=== PATIENT | female | born 1930 | race Caucasian/White ===

== ENCOUNTER 2019-04-26 20:56 | Observation (INO) ==
[2019-04-26 21:20] LABS: Basophils % 0.5 % (0.1-2.0); Eosinophils # 0.4 K/mm3 (0.0-0.4); Eosinophils % 6.5 % (0.1-12.0); Hematocrit 36.4 % (37.0-47.0); Hemoglobin 11.6 g/dL (12.2-16.2); Lymphocytes # 1.7 K/mm3 (0.7-4.5); Lymphocytes % 28.1 % (10-50); Mean Corpuscular HGB Conc 31.9 g/dL (31.8-35.4); Mean Corpuscular Volume 92.9 fl (81-99); Mean Platelet Volume 7.5 fl (7.4-10.4); Monocytes # 0.5 K/mm3 (0.1-1.0); Monocytes % 8.8 % (1.7-9.3); Neutrophils # 3.4 K/mm3 (1.8-7.8); Neutrophils % 56.1 % (37.0-80.0); Platelet Count 277 K/mm3 (142-424); Red Blood Count 3.91 M/mm3 (4.20-5.40); Red Cell Distribution Width 13.2 % (11.5-17.5)
[2019-04-26 21:27] LABS: Activated Partial Thrombo Time 29.8 seconds (23.6-34.0); INR 0.97 (0.9-1.1); Prothrombin Time 10.1 seconds (9.4-11.8)
[2019-04-26 21:33] LABS: Anion Gap 12.9 mEq/L (5-15); Calcium 9.1 mg/dL (8.5-10.1)
[2019-04-26 21:51] LABS: Microscopic, Urine URINE MICROSCOPIC (MICROSCOPIC)
[2019-04-26 21:52] LABS: Albumin Level 3.1 gm/dL (3.4-5.0); Bilirubin,Total 0.2 mg/dL (0.2-1.0); Total Protein,Serum 7.3 gm/dL (6.4-8.2)
[2019-04-26 21:54] LABS: Appearance,Urine CLEAR (Clear); Bilirubin,Urine Negative (Negative); Blood, Urine Negative (Negative); Color,Urine YELLOW (Yellow); Glucose,Urine (UA) Negative (Negative); Ketones,Urine Negative (Negative); Leukocyte Esterase,Urine 1+ (Negative); Protein,Urine Negative (Negative); Urobilinogen,Urine 0.2 EU/dl (0.2)
[2019-04-26 21:54] LABS: Bilirubin,Indirect 0.2 mg/dL (0.0-0.9)
--- NOTE | 2019-04-26 22:12 | Emergency Department Note ---
ED Disposition Clinical Impression: Elevated troponin, RBBB, Renal insufficiency, Elevated erythrocyte sedimentation rate Transient cerebral ischemia Qualifiers: Transient cerebral ischemia type: unspecified Qualified Code(s): G45.9 - Transient cerebral ischemic attack, unspecified Disposition: Admitted as Observation Condition on Discharge: Fair Referrals: Del Tavares MD [Primary Care Provider] - - Critical Care Critical Care Time: Yes Attestation: On 04/26/19, the high probability of a clinically significant, sudden or life threatening deterioration of the following system(s) required my full and direct attention, intervention and personal management. The time I documented below is in addition to time spent performing reported procedures but includes the following listed in this critical care notation. Total Critical Care Time: 60 Vital system(s) involved:: Central Nervous System My critical care processes included: Assessment & monitoring of V/S, Data Review/Interpretation, Coordinating Care, Medication Orders and management, Documentation Medical Decision Making - Medical Records Medical records reviewed: Yes: I reviewed the patient's medical records. - Brock Inquiry Pt receiving controlled substance: No Vital Signs: 04/26/19 21:03 04/26/19 21:21 Temperature 98.4 F Temperature Source Oral Pulse Rate [Right] 85 85 Respiratory Rate 18 18 Blood Pressure [Right Arm] 148/77 H 148/77 H Blood Pressure Mean [Right Arm] 100 100 02 Sat by Pulse Oximetry 95 94 L Oxygen Delivery Method Room Air Room Air - Lab Data Lab results reviewed: Yes: I reviewed the patient's lab results. Lab Results 04/26/19 19:05: WBC 6.0, RBC 3.91 L, Hgb 11.6 L, Hct 36.4 L, MCV 92.9, MCH 29.6, MCHC 31.9, RDW 13.2, Plt Count 277, MPV 7.5, Neut % (Auto) 56.1, Lymph % (Auto) 28.1, Gila % (Auto) 8.8, Eos % (Auto) 6.5, Baso % (Auto) 0.5, Neut # (Auto) 3.4, Lymph # (Auto) 1.7, Gila # (Auto) 0.5, Eos # (Auto) 0.4, Baso # (Auto) 0.0 04/26/19 19:05: Sodium 138, Potassium 4.9, Chloride 106, Carbon Dioxide 24, Anion Gap 12.9, BUN 42 H, Creatinine 1.79 H, Estimated Creat Clear 20, Estimated GFR 27 L, Est GFR ( Amer) 32 L, Glucose 102, Calcium 9.1, Troponin I 0.15 H 04/26/19 19:05: PT 10.1, INR 0.97, APTT 29.8 04/26/19 19:05: C-Reactive Protein 1.5 H 04/26/19 19:05: Total Bilirubin 0.2, Direct Bilirubin 0.0, Indirect Bilirubin 0.2, AST 12 L, ALT 13, Alkaline Phosphatase 94, Total Protein 7.3, Albumin 3.1 L 04/26/19 21:48: Urine Color Yellow, Urine Appearance Clear, Urine pH 6.0, Ur Specific [place] 1.020, Urine Protein Negative, Urine Glucose (UA) Negative, Urine Ketones Negative, Urine Blood Negative, Urine Nitrate Negative, Urine Bilirubin Negative, Urine Urobilinogen 0.2, Ur Leukocyte Esterase 1+ A, Urine WBC 5-10, Ur Squamous Epith Cells 10-20, Ur Renal Epithelial Cell 10-20 Result diagrams: 04/26/19 19:05 04/26/19 19:05 Orders (Tests/Meds): ORDERS Category Date Time Status CT head/brain wo con Stat Cat Scan 04/26/19 21:00 Taken Chest XR -- portable [XR chest portable] Stat Exams 04/26/19 21:01 Taken Erythrocyte Sedimentation Rate Stat Lab 04/26/19 19:05 Received Lactic Acid Stat Lab 04/26/19 21:37 Received Blood Culture Stat Micro 04/26/19 21:37 Received Urine Culture Stat Micro 04/26/19 21:48 Received 12-lead EKG Request [ECG Request by /Davina] Stat Y 04/26/19 21:11 Ordered - Radiology Data #1 Image(s): Chest Image Reviewed: Yes I reviewed the patient's radiology image Preliminary Findings: Normal/NAD - CT Data CT Scan: Head Time Received: 22:[address] Reviewed: Yes: I have viewed the radiologist's interpretation Preliminary Findings: Normal/NAD - ECG Data Tracing #1 Normal Sinus Rhythm: Yes Ischemic changes: non-specific ST-T wave changes Conduction abnormalities present: RBBB, 1st degree AV block ECG compared to prior tracings: there are no significant changes - Physician Consults Physician Consulted: mary omalley stroke team Reason -: Pt condition Neuro HPI - General Chief Complaint: Neuro Symptoms/Deficit Stated Complaint: Possible stroke Time Seen by Provider: 04/26/19 21:10 Mode of Arrival: EMS Source of Information: Patient, Relative, EMS, Medical Record Limitations: Physical Limitations Description of Symptoms (Recalled from ER Triage Doc. by RN): Pt family states they were visiting pt around 1900 this evening and pt reported she was very weak. Family did not noticed any deficits at this time. [facility] to [facility] from jail pt began to left sided drooping in her face around 1930 and called EMS. Per RN at jail she gave pt 81mg asa. - History of Present Illness HPI Narrative: sudden nonresponsive and responded to tactile stimuli and had brief period of aphasia - pt with nausea en route - no fever or trauma and no def visual loss bu t confusing story of rt lid ptosis - she is at baseline now except partial rt lid ptosis Onset (ago): hour(s) Date last observed normal: 04/26/19 Time last observed normal: 19:00 Timing confirmed by: family member Location: speech History of same: No Severity: moderate On Anticoagulants: No Associated symptoms: denies other symptoms Treatments Prior to Arrival: none - Related Data Home Medications: Home Medications Medication Instructions Recorded Confirmed Acetaminophen [Tylenol 500mg 500 mg PO NEEDED PRN 04/26/19 04/26/19 tablet] Amlodipine Besylate [Amlodipine 10 mg PO DAILY 04/26/19 04/26/19 10mg Tab] Benzonatate [Benzonatate 100mg 100 mg PO NEEDED PRN 04/26/19 04/26/19 cap] Ferrous Sulfate [Ferrous Sulfate 325 mg PO DAILY 04/26/19 04/26/19 325mg Tablet] Fluticasone Propionate [Flonase 2 spr NS DAILY 04/26/19 04/26/19 50mcg nasal spray 16gm] Gabapentin [Gabapentin 300mg Cap] 300 mg PO BID 04/26/19 04/26/19 Ibuprofen [Ibuprofen 200MG Capsule] 200 mg PO NEEDED PRN 04/26/19 04/26/19 L.acidoph,Paracasei, B.lactis 1 each PO DAILY 04/26/19 04/26/19 [Probiotic] Lactulose [Lactulose 10gm/15ml 10 gm PO NEEDED PRN 04/26/19 04/26/19 Oral Soln] Lisinopril [Lisinopril 5mg 5 mg PO DAILY 04/26/19 04/26/19 Tablet] Loratadine [Claritin] 10 mg PO DAILY 04/26/19 04/26/19 Melatonin 10 mg PO HS 04/26/19 04/26/19 Omeprazole [Omeprazole 40mg 40 mg PO DAILY 04/26/19 04/26/19 Capsule] Sennosides [Senna] 8.6 mg PO NEEDED PRN 04/26/19 04/26/19 Sertraline HCl 25 mg PO DAILY 04/26/19 04/26/19 Tolterodine Tartrate [Tolterodine 4 mg PO DAILY 04/26/19 04/26/19 Tartrate ER] levETIRAcetam [Keppra 500mg tablet] 500 mg PO BID 04/26/19 04/26/19 Allergies/Adverse Reactions: Allergies Allergy/AdvReac Type Severity Reaction Status Date / Time No Known Drug Intolerances Allergy Unknown NA Unverified 09/11/17 15:07 Stroke Alert/NIH Score - LOC Stroke Alert: Yes Stroke Alert date: 04/26/19 Stroke Alert time of activation: 21:00 Location of Alert: Emergency Department Level of Consciousness: Alert LOC Questions: Answers both correctly LOC Commands: Obeys both correctly - Facial/Visual Best Gaze: Normal Visual: No visual loss Facial Palsy: Partial - Motor Motor Response, Left Arm: No drift/Amputation/Fused Motor Response, Right Arm: No drift/Amputation/Fused Motor Response, Left Leg: No drift/Amputation/Fused Motor Response, Right Leg: No drift/Amputation/Fused - Sensory/Language Limb Ataxia: Absent Sensory: Normal Best Language: No aphasia Dysarthria: Normal speech, Intubated or Barrier present - NIH Score Stroke Risk Score: 2 H History - Hepatitis A Screen Drug use history?: No High risk sexual behaviors?: No History of sexually transmitted infection?: No Currently employed?: No Childcare worker?: No Do you have indoor plumbing?: Yes Do you have electricity?: Yes Attestation statement:: This patient has been screened for Hepatitis A risk factors. I have reviewed the patient's past medical history: Yes Medical History: Reports:: Cancer (breast) Laterality Cases: Left: Mastectomy - Social History Alcohol Intake: never Occupational Status: retired ROS Obtained: Yes All systems reviewed & no additional complaints - Constitutional Constitutional: Denies fever(s) - Eyes Eyes: Reports as per HPI, Denies loss of vision, Denies eye pain, Denies photophobia, Reports other (rt lid ptosis) - ENT Ears, Nose, Mouth, and Throat: Reports dry mouth - Cardiovascular Cardiovascular: Denies chest pain, Denies palpitations - Respiratory Respiratory: No cough - Genitourinary Female Genitourinary: Denies hematuria - Musculoskeletal Musculoskeletal: Denies joint pain - Integumentary/Breasts Skin/Breast: Denies rash - Neurologic Neurologic: Reports as per HPI, Reports abnormal speech, Denies confusion, Denies focal weakness, Denies seizure-like activity, Denies syncope Physical Exam - General General appearance: alert - Head Head exam: normocephalic - Eye Eye exam: Present: PERRL, EOMI, other (partial rt lid ptosis). Absent: nystagmus - ENT ENT exam: Present: mucous membranes dry, other (no evid of tongue biting ) - Neck Neck exam: Present: trachea midline. Absent: full ROM - Respiratory Respiratory exam: Present: normal lung sounds bilaterally. Absent: respiratory distress - Cardiovascular Cardiovascular exam: Present: regular rate, systolic murmur, +S4 - Abdominal Exam Abdominal exam: Present: soft - Extremities Exam Extremities exam: Present: full ROM - Neurological Exam Neurological exam: Present: alert, oriented X3. Absent: CN II-XII intact (partial rt ptosis) - Psychiatric Psychiatric exam: Present: normal affect - Skin Skin exam: Absent: rash
[2019-04-27 05:19] LABS: Basophils % 0.4 % (0.1-2.0); Eosinophils # 0.4 K/mm3 (0.0-0.4); Eosinophils % 6.9 % (0.1-12.0); Hematocrit 33.9 % (37.0-47.0); Hemoglobin 10.9 g/dL (12.2-16.2); Lymphocytes # 1.7 K/mm3 (0.7-4.5); Lymphocytes % 29.1 % (10-50); Mean Corpuscular HGB Conc 32.2 g/dL (31.8-35.4); Mean Corpuscular Volume 91.7 fl (81-99); Mean Platelet Volume 9.2 fl (7.4-10.4); Monocytes # 0.5 K/mm3 (0.1-1.0); Monocytes % 9.1 % (1.7-9.3); Neutrophils # 3.2 K/mm3 (1.8-7.8); Neutrophils % 54.5 % (37.0-80.0); Platelet Count 254 K/mm3 (142-424); Red Cell Distribution Width 13.1 % (11.5-17.5); White Blood Count 5.8 K/mm3 (4.8-10.8)
[2019-04-27 05:33] LABS: Anion Gap 13.1 mEq/L (5-15); Calcium 8.9 mg/dL (8.5-10.1)
--- NOTE | 2019-04-27 08:29 | H&P/Discharge Summary ---
General - General Admission date:: 04/26/19 Discharge date: 04/27/19 *Admission Date: 04/27/19 *Chief complaint: Facial drooping, fatigue *History of present illness: 88-year-old white female, patient of our practice at a local group home, whose family was visiting her and noticed that her face was somewhat drooping. She also felt fatigued and tired. This prompted transfer to emergency department In the emergency department work-up ensued showing EKG with right bundle branch block. CT scan of head was nondiagnostic, she was found to have a mildly elevated troponin level. Given her symptoms of TIA disease and the lab abnormalities including an acute kidney injury she was admitted overnight for observation. This morning she is pleasant, talkative states that she feels better and states that she feels that the right side of her face is "back to normal." [facility] History I have reviewed the patient's past medical history: Yes Medical History: Reports:: Cancer (breast), Hyperlipidemia, Hypertension Denies:: Diabetes Mellitus Type 1, Diabetes Mellitus Type 2 *Have you ever received a pneumonia vaccine?: Yes (LTC, PT STATES "I THINK SO.") *Have you received a flu vaccine this season?: Yes (LTC, PT STATES "I THINK SO.") Other Medical History: Reports: Anemia, Hypothyroidism, Thyroid Disease (HYPERPARATHYROIDISM) Laterality Cases: Left: Mastectomy - *Social History Educational Level: Attended High School Smoking Status: Never smoker Alcohol Intake: never *Occupational Status:: retired Housing: group home *Travel in the last 8 weeks: None - Psychiatric History Expresses thoughts of harming self/others: None Suicide Plan Description: No Plan Family Hx:: Unable to obtain, No significant family history Review of Systems - Review of Systems Review of systems:: pertinent systems reviewed and negative unless documented below - Constitutional Denies anorexia, Denies body ache(s) - Eyes Denies blind spots, Denies blurry vision, Denies change in vision - ENT Denies abnormal hearing, Denies dizziness, Denies dry mouth, Denies facial pain - *Cardiovascular Denies chest pain, Denies excessive sweating, Denies shortness of breath - *Respiratory Denies change in phlegm color, Denies chest congestion, Denies shortness of breath with activity, Denies excessive phlegm production - *Gastrointestinal Denies abdominal pain, Denies change in stools, Denies coffee ground vomit, Denies constipation - *Musculoskeletal Denies abnormal walking, Denies joint swelling, Denies limited joint movement - Integumentary/Breasts Denies hair loss, Denies bleeding lesions, Denies changing lesions - *Neurologic Reports abnormal speech, Denies confusion, Denies localized weakness, Denies loss of vision, Denies seizure-like activity, Denies fainting - Psychiatric Denies abnormal sleep pattern - Endocrine Denies cold intolerance - Hematologic/Lymphatic Denies easy bleeding, Denies easy bruising Exam Vital signs and Labs for Last 24 Hours: Temp Pulse Resp BP Pulse Ox 97.8 F 68 16 110/58 L 94 L 04/27/19 04:00 04/27/19 04:00 04/27/19 04:00 04/27/19 04:00 04/27/19 04:00 Laboratory Results - last 24 hr 04/26/19 19:05: WBC 6.0, RBC 3.91 L, Hgb 11.6 L, Hct 36.4 L, MCV 92.9, MCH 29.6, MCHC 31.9, RDW 13.2, Plt Count 277, MPV 7.5, Neut % (Auto) 56.1, Lymph % (Auto) 28.1, Pender % (Auto) 8.8, Eos % (Auto) 6.5, Baso % (Auto) 0.5, Neut # (Auto) 3.4, Lymph # (Auto) 1.7, Pender # (Auto) 0.5, Eos # (Auto) 0.4, Baso # (Auto) 0.0 04/26/19 19:05: Sodium 138, Potassium 4.9, Chloride 106, Carbon Dioxide 24, Anion Gap 12.9, BUN 42 H, Creatinine 1.79 H, Estimated Creat Clear 20, Estimated GFR 27 L, Est GFR ( Amer) 32 L, Glucose 102, Calcium 9.1, Troponin I 0.15 H 04/26/19 19:05: PT 10.1, INR 0.97, APTT 29.8 04/26/19 19:05: ESR 90 H 04/26/19 19:05: C-Reactive Protein 1.5 H 04/26/19 19:05: Total Bilirubin 0.2, Direct Bilirubin 0.0, Indirect Bilirubin 0.2, AST 12 L, ALT 13, Alkaline Phosphatase 94, Total Protein 7.3, Albumin 3.1 L 04/26/19 21:37: Lactate 0.8 04/26/19 21:48: Urine Color Yellow, Urine Appearance Clear, Urine pH 6.0, Ur Specific [place] 1.020, Urine Protein Negative, Urine Glucose (UA) Negative, Urine Ketones Negative, Urine Blood Negative, Urine Nitrate Negative, Urine Bilirubin Negative, Urine Urobilinogen 0.2, Ur Leukocyte Esterase 1+ A, Urine WBC 5-10, Ur Squamous Epith Cells 10-20, Ur Renal Epithelial Cell 10-20 04/27/19 01:40: Troponin I 0.11 H 04/27/19 05:10: WBC 5.8, RBC 3.70 L, Hgb 10.9 L, Hct 33.9 L, MCV 91.7, MCH 29.5, MCHC 32.2, RDW 13.1, Plt Count 254, MPV 9.2, Neut % (Auto) 54.5, Lymph % (Auto) 29.1, Pender % (Auto) 9.1, Eos % (Auto) 6.9, Baso % (Auto) 0.4, Neut # (Auto) 3.2, Lymph # (Auto) 1.7, Pender # (Auto) 0.5, Eos # (Auto) 0.4, Baso # (Auto) 0.0 04/27/19 05:10: Sodium 142, Potassium 4.1, Chloride 109 H, Carbon Dioxide 24, Anion Gap 13.1, BUN 37 H, Creatinine 1.59 H, Estimated Creat Clear 26, Estimated GFR 31 L, Est GFR ( Amer) 37 L, Glucose 86, Calcium 8.9, Troponin I 0.10 H I & O for Last 24 hours: Intake & Output 04/24/19 04/25/19 04/26/19 04/27/19 11:59 11:59 11:59 11:59 Intake Total 228 / 228 Balance 228 / 228 Weight 152 lb 8.006 oz Narrative: This morning patient is pleasant. She appears to have no eyelid swelling or facial drooping. Her I left an eyebrow lift and tongue protrusion are symmetric. Nasolabial folds are symmetric. (Of note there is possibly a history of an insect bite at a group home outing on the right eyelid that may have precipitated the entire event.) Heart rate regular. Lungs clear and well-expanded, abdomen soft and nontender. No JVD. Oropharynx clear. No rash. Patient can move arms and legs well, court clerk strength is intact. Hospital Course Hospital Course: Patient was admitted overnight. Acute kidney injury improved, creatinine improved. Troponins also improved, consistent with non-cardiac etiology of troponin elevation. This morning she is doing well. My plan will be to transfer back to the group home with a diagnosis of TIA. I will start low-dose aspirin therapy, I will hold lisinopril because of her relative hypotension and her propensity for acute kidney injury. Of note please draw basic metabolic panel and CBC on 04/30/2019. Results Labs on day of discharge: Labs from last 24 hours 04/27/19 04/27/19 04/27/19 05:10 05:10 01:40 WBC 5.8 RBC 3.70 L Hgb 10.9 L Hct 33.9 L MCV 91.7 MCH 29.5 MCHC 32.2 RDW 13.1 Plt Count 254 MPV 9.2 Neut % (Auto) 54.5 Lymph % (Auto) 29.1 Pender % (Auto) 9.1 Eos % (Auto) 6.9 Baso % (Auto) 0.4 Neut # (Auto) 3.2 Lymph # (Auto) 1.7 Pender # (Auto) 0.5 Eos # (Auto) 0.4 Baso # (Auto) 0.0 ESR PT INR APTT Sodium 142 Potassium 4.1 Chloride 109 H Carbon Dioxide 24 Anion Gap 13.1 BUN 37 H Creatinine 1.59 H Estimated Creat Clear 26 Estimated GFR 31 L Est GFR ( Amer) 37 L Glucose 86 Lactate Calcium 8.9 Total Bilirubin Direct Bilirubin Indirect Bilirubin AST ALT Alkaline Phosphatase Troponin I 0.10 H 0.11 H C-Reactive Protein Total Protein Albumin Urine Color Urine Appearance Urine pH Ur Specific [place] Urine Protein Urine Glucose (UA) Urine Ketones Urine Blood Urine Nitrate Urine Bilirubin Urine Urobilinogen Ur Leukocyte Esterase Urine WBC Ur Squamous Epith Cells Ur Renal Epithelial Cell 04/26/19 04/26/19 04/26/19 21:48 21:37 19:05 WBC RBC Hgb Hct MCV MCH MCHC RDW Plt Count MPV Neut % (Auto) Lymph % (Auto) P[place] % (Auto) Eos % (Auto) Baso % (Auto) Neut # (Auto) Lymph # (Auto) Pender # (Auto) Eos # (Auto) Baso # (Auto) ESR PT INR APTT Sodium Potassium Chloride Carbon Dioxide Anion Gap BUN Creatinine Estimated Creat Clear Estimated GFR Est GFR ( Amer) Glucose Lactate 0.8 Calcium Total Bilirubin 0.2 Direct Bilirubin 0.0 Indirect Bilirubin 0.2 AST 12 L ALT 13 Alkaline Phosphatase 94 Troponin I C-Reactive Protein Total Protein 7.3 Albumin 3.1 L Urine Color Yellow Urine Appearance Clear Urine pH 6.0 Ur Specific [place] 1.020 Urine Protein Negative Urine Glucose (UA) Negative Urine Ketones Negative Urine Blood Negative Urine Nitrate Negative Urine Bilirubin Negative Urine Urobilinogen 0.2 Ur Leukocyte Esterase 1+ A Urine WBC 5-10 Ur Squamous Epith Cells 10-20 Ur Renal Epithelial Cell 10-20 04/26/19 04/26/19 04/26/19 19:05 19:05 19:05 WBC RBC Hgb Hct MCV MCH MCHC RDW Plt Count MPV Neut % (Auto) Lymph % (Auto) Pender % (Auto) Eos % (Auto) Baso % (Auto) Neut # (Auto) Lymph # (Auto) Pender # (Auto) Eos # (Auto) Baso # (Auto) ESR 90 H PT 10.1 INR 0.97 APTT 29.8 Sodium Potassium Chloride Carbon Dioxide Anion Gap BUN Creatinine Estimated Creat Clear Estimated GFR Est GFR ( Amer) Glucose Lactate Calcium Total Bilirubin Direct Bilirubin Indirect Bilirubin AST ALT Alkaline Phosphatase Troponin I C-Reactive Protein 1.5 H Total Protein Albumin Urine Color Urine Appearance Urine pH Ur Specific [place] Urine Protein Urine Glucose (UA) Urine Ketones Urine Blood Urine Nitrate Urine Bilirubin Urine Urobilinogen Ur Leukocyte Esterase Urine WBC Ur Squamous Epith Cells Ur Renal Epithelial Cell 04/26/19 04/26/19 19:05 19:05 WBC 6.0 RBC 3.91 L Hgb 11.6 L Hct 36.4 L MCV 92.9 MCH 29.6 MCHC 31.9 RDW 13.2 Plt Count 277 MPV 7.5 Neut % (Auto) 56.1 Lymph % (Auto) 28.1 Pender % (Auto) 8.8 Eos % (Auto) 6.5 Baso % (Auto) 0.5 Neut # (Auto) 3.4 Lymph # (Auto) 1.7 Pender # (Auto) 0.5 Eos # (Auto) 0.4 Baso # (Auto) 0.0 ESR PT INR APTT Sodium 138 Potassium 4.9 Chloride 106 Carbon Dioxide 24 Anion Gap 12.9 BUN 42 H Creatinine 1.79 H Estimated Creat Clear 20 Estimated GFR 27 L Est GFR ( Amer) 32 L Glucose 102 Lactate Calcium 9.1 Total Bilirubin Direct Bilirubin Indirect Bilirubin AST ALT Alkaline Phosphatase Troponin I 0.15 H C-Reactive Protein Total Protein Albumin Urine Color Urine Appearance Urine pH Ur Specific [place] Urine Protein Urine Glucose (UA) Urine Ketones Urine Blood Urine Nitrate Urine Bilirubin Urine Urobilinogen Ur Leukocyte Esterase Urine WBC Ur Squamous Epith Cells Ur Renal Epithelial Cell DS: Diagnosis - Discharge Diagnosis (1) Elevated troponin Status: Acute Problem details: Noncardiac. (2) Renal insufficiency Status: Acute (3) Transient cerebral ischemia Status: Acute Discharge Plan - Patient Discharge Instructions ACTIVITY: Continue current activity DIET: continue same diet Patient Instructions: Transient Ischemic Attack - Follow up Plan Disposition: [facility] Home Medications: Home Medications Medication Instructions Recorded Confirmed Type Acetaminophen [Tylenol 500mg 500 mg PO NEEDED PRN 04/26/19 04/26/19 History tablet] Amlodipine Besylate [Amlodipine 10 mg PO DAILY 04/26/19 04/26/19 History 10mg Tab] Benzonatate [Benzonatate 100mg 100 mg PO NEEDED PRN 04/26/19 04/26/19 History cap] Ferrous Sulfate [Ferrous Sulfate 325 mg PO DAILY 04/26/19 04/26/19 History 325mg Tablet] Fluticasone Propionate [Flonase 2 spr NS DAILY 04/26/19 04/26/19 History 50mcg nasal spray 16gm] Gabapentin [Gabapentin 300mg Cap] 300 mg PO BID 04/26/19 04/26/19 History Ibuprofen [Ibuprofen 200MG Capsule] 200 mg PO NEEDED PRN 04/26/19 04/26/19 History L.acidoph,Paracasei, B.lactis 1 each PO DAILY 04/26/19 04/26/19 History [Probiotic] Lactulose [Lactulose 10gm/15ml 10 gm PO NEEDED PRN 04/26/19 04/26/19 History Oral Soln] Lisinopril [Lisinopril 5mg 5 mg PO DAILY 04/26/19 04/26/19 History Tablet] Loratadine [Claritin] 10 mg PO DAILY 04/26/19 04/26/19 History Melatonin 10 mg PO HS 04/26/19 04/26/19 History Omeprazole [Omeprazole 40mg 40 mg PO DAILY 04/26/19 04/26/19 History Capsule] Sennosides [Senna] 8.6 mg PO NEEDED PRN 04/26/19 04/26/19 History Sertraline HCl 25 mg PO DAILY 04/26/19 04/26/19 History Tolterodine Tartrate [Tolterodine 4 mg PO DAILY 04/26/19 04/26/19 History Tartrate ER] levETIRAcetam [Keppra 500mg tablet] 500 mg PO BID 04/26/19 04/26/19 History Aspirin [Aspir 81] 81 mg PO DAILY #30 tablet. 04/27/19 Rx Prescriptions/Medication Reconciliation: New Aspirin [Aspir 81] 81 mg PO DAILY #30 tablet. Continued Ferrous Sulfate [Ferrous Sulfate 325mg Tablet] 325 mg PO DAILY Fluticasone Propionate [Flonase 50mcg nasal spray 16gm] 2 spr NS DAILY Amlodipine Besylate [Amlodipine 10mg Tab] 10 mg PO DAILY Tolterodine Tartrate [Tolterodine Tartrate ER] 4 mg PO DAILY Sertraline HCl 25 mg PO DAILY Sennosides [Senna] 8.6 mg PO NEEDED PRN PRN Reason: Constipation Omeprazole [Omeprazole 40mg Capsule] 40 mg PO DAILY Loratadine [Claritin] 10 mg PO DAILY levETIRAcetam [Keppra 500mg tablet] 500 mg PO BID Lactulose [Lactulose 10gm/15ml Oral Soln] 10 gm PO NEEDED PRN PRN Reason: Constipation L.acidoph,Paracasei, B.lactis [Probiotic] 1 each PO DAILY Gabapentin [Gabapentin 300mg Cap] 300 mg PO BID Benzonatate [Benzonatate 100mg cap] 100 mg PO NEEDED PRN PRN Reason: Cough Acetaminophen [Tylenol 500mg tablet] 500 mg PO NEEDED PRN PRN Reason: pain Melatonin 10 mg PO HS Discontinued Lisinopril [Lisinopril 5mg Tablet] 5 mg PO DAILY Ibuprofen [Ibuprofen 200MG Capsule] 200 mg PO NEEDED PRN PRN Reason: pain
== END 2019-04-27 11:35 ==
LOC: ER 20:56 → 2ND 20:56
PROVIDERS: ADMIT Emergency Medicine; ATTEND Internal Medicine Adolescent Medicine
DX: D64.9 Anemia, unspecified; Z79.899 Other long term (current) drug therapy; R79.89 Other specified abnormal findings of blood chemistry; I95.9 Hypotension, unspecified; N28.9 Disorder of kidney and ureter, unspecified; I10 Essential (primary) hypertension; E78.5 Hyperlipidemia, unspecified; G45.9 Transient cerebral ischemic attack, unspecified
CPT/HCPCS: 36415; 70450; 71010; 71045; 80048; 80076; 80177; 81001; 82962; 83605; 84484; 85025; 85610; 85651; 85730; 86140; 87040; 87086; 93005; 99285; G0378